=== PATIENT | female | born 1960 | race Caucasian/White ===

== ENCOUNTER 2017-10-24 18:42 | Emergency (ER) | payer BC ==
[~2017-10-24] VITALS: Ht 172.7 cm; Wt 68.8 kg
[2017-10-24 19:12] VITALS: TEMP 36.7; Ht 172.7 cm; Wt 68.8 kg
[2017-10-24] MEDS ORDERED: ONDANSETRON INJ 2 MG/ML 2 ML VIAL IV STA (19:51)
[2017-10-24] MEDS ORDERED: SODIUM CHLORIDE 0.9% 1000ML 1,000 ML IV STA (19:51)
[2017-10-24 20:22] LABS: BASO % 0.3 %; BASO ABS # 0.03 K/uL (0-0.2); EOS ABS # 0.35 K/uL (0-0.5); HEMATOCRIT 38.4 % (37-47); HEMOGLOBIN 13.1 g/dL (12.0-16.0); IG# 0.02 K/uL (0.00-0.02); LYMPH % 41.4 %; LYMPH ABS # 3.66 K/uL (1.2-3.4); MEAN CELL VOLUME 95.3 fL (80-100); MEAN CORPUSCULAR HEMOGLOBIN 32.5 pg (25-34); MEAN CORPUSCULAR HGB CONC 34.1 g/dl (32-36); MEAN PLATELET VOLUME 9.3 fL (7.4-10.4); MONO % 7.8 %; MONO ABS # 0.69 K/uL (0.11-0.59); NEUT % 46.3 %; PLATELET COUNT 217 K/uL (130-400); RED CELL DISTRIBUTION WIDTH SD 45.5 fL (36.4-46.3); WHITE BLOOD COUNT 8.85 K/uL (4.8-10.8)
--- NOTE | 2017-10-24 20:22 | DIAGNOSTIC IMAGING REPORT ---
CHEST ONE VIEW PORTABLE CLINICAL HISTORY: ABDOMINAL PAIN/GI pain COMPARISON STUDY: No previous studies for comparison. FINDINGS: The bones soft tissues and hemidiaphragms are normal. The cardiomediastinal silhouette is normal. The lungs are clear. The pulmonary vasculature is normal. Slight blunting left lateral costophrenic angle IMPRESSION: Negative chest. Slight blunting left lateral costophrenic angle of uncertain age The above report was generated using voice recognition software. It may contain grammatical, syntax or spelling errors. Electronically signed by: Aramis Westbrook M.D. 10/24/2017 8:21 PM Dictated Date/Time: 10/24/2017 8:20 PM
[2017-10-24] MEDS ORDERED: TRAZ50TA35 PO (20:23)
[2017-10-24] MEDS ORDERED: ASPI81TA28 PO (20:23)
[2017-10-24] MEDS ORDERED: VNTHFA/IN INH (20:23)
[2017-10-24] MEDS ORDERED: MULT-602 PO (20:23)
[2017-10-24] MEDS ORDERED: RANI150T85 PO (20:23)
[2017-10-24] MEDS ORDERED: NTRGSL/4 UT (20:23)
[2017-10-24] MEDS ORDERED: ATOR-24 PO (20:23)
[2017-10-24] MEDS ORDERED: CITA20TA4 PO (20:23)
[2017-10-24] MEDS ORDERED: SPRIN/30 INH (20:23)
[2017-10-24 20:38] LABS: ALBUMIN 3.9 gm/dl (3.4-5.0); ALT/SGPT 21 U/L (12-78); BLOOD UREA NITROGEN 15 mg/dl (7-18); CARBON DIOXIDE 29 mmol/L (21-32); CREATININE 0.88 mg/dl (0.60-1.20); GLUCOSE 85 mg/dl (70-99); LIPASE 184 U/L (73-393); POTASSIUM 3.8 mmol/L (3.5-5.1); SODIUM 138 mmol/L (136-145)
--- NOTE | 2017-10-24 20:39 | DIAGNOSTIC IMAGING REPORT ---
ABD/PELVIS NO IV OR ORAL CONT CT DOSE: 280.50 mGy.cm HISTORY: Flank pain diarrhea, vomiting, llq pain TECHNIQUE: Multiaxial CT images of the abdomen and pelvis were performed without contrast. A dose lowering technique was utilized adhering to the principles of ALARA. COMPARISON STUDY: None. FINDINGS: The lung bases are clear. Liver spleen and kidneys are unremarkable. No evidence for hydronephrosis. 3 cm lower pole left renal cyst. No renal calcifications or obstructive change. Unremarkable bowel pattern within the limitations of a complete lack of contrast. Normal appendix. Mild chronic sigmoid diverticulosis. No evidence for acute diverticulitis. IMPRESSION: 1. Mild chronic sigmoid diverticulosis.. 2. 3 cm lower pole left renal cyst. 3. Otherwise negative study. The above report was generated using voice recognition software. It may contain grammatical, syntax or spelling errors. Electronically signed by: Aramis Westbrook M.D. 10/24/2017 8:37 PM Dictated Date/Time: 10/24/2017 8:35 PM
[2017-10-24 20:41] LABS: ALKALINE PHOSPHATASE 46 U/L (45-117); AST/SGOT 17 U/L (15-37); TOTAL PROTEIN 7.2 gm/dl (6.4-8.2)
[2017-10-24] MEDS ORDERED: CEFTRIAXONE SOD INJ 1 GM ADDVIAL IV STA (21:53)
[2017-10-24] MEDS ORDERED: ONDA4TAB10 SL (23:15)
[2017-10-24] MEDS ORDERED: SULF800T23 PO (23:15)
--- NOTE | 2017-10-24 23:15 | EMERGENCY ROOM VISIT NOTE ---
History Report prepared by Jyotsna: Lucia Oliveira Under the Supervision of: Dr. Nadir Winkler D.O. First contact with patient: 19:43 Chief Complaint: ABDOMINAL PAIN Stated Complaint: VOMITTING,DIARRHEA,O2LVL DOWN,CONGESTION,DR DWIGHT Nursing Triage Summary: Seen at [facility] for vomiting nad diarrhea for 3 weeks. Not daily but off and on. Patient stated that there are tender spots in lower left quadrant and [facility] felt it could be divertuculitis. Patient notes lung and head congestion as well. History of Present Illness The patient is a 56 year old female who presents to the Emergency Room with complaints of persistent vomiting starting 1999 yesterday. The patient is nauseous and has been unable to keep anything down. She has vomited around 6 times. She also reports diarrhea and abdominal pain. She has diarrhea every time she goes to urinate. She has had these symptoms intermittently for the past 3 week. She was seen at the clinic today and referred to the ED because her oxygen level was low. She reports congestion and headache. She has a history of diverticulitis. She does smoke. Her oxygen is often low. She had a test and qualified for home oxygen, but she is currently not on oxygen. She denies any sick contacts. Source of History: patient Onset: 1999 yesterday Position: other (global) Quality: other (vomiting) Timing: other (persistent) Associated Symptoms: + headache, + nausea, + abdominal pain, + diarrhea Note: Pt reports congestion. Review of Systems See HPI for pertinent positives & negatives. A total of 10 systems reviewed and were otherwise negative. Past Medical & Surgical Medical Problems: (1) Diverticulitis Family History No pertinent family history stated. Social History Smoking Status: Never Smoker Marital Status: Current/Historical Medications Scheduled Albuterol Hfa (Ventolin Hfa), 2-4 PUFFS INH Q6H Aspirin (Aspirin Ec), 81 MG PO DAILY Atorvastatin (Lipitor), 40 MG PO DAILY Citalopram Hydrobromide (Citalopram Hydrobromide), 1 TAB PO DAILY Multiple Vitamins W/ Minerals (Womens 50+ Multi Vitamin), 1 TAB PO DAILY Nitroglycerin (Nitrostat), 0.4 MG UT PRN Ranitidine (Zantac), 150 MG PO DAILY Tiotropium [place] (Spiriva Handihaler), 1 CAP INH DAILY Trazodone Hcl (Trazodone), 50 MG PO HS Allergies Coded Allergies: Cephalexin (Unverified Allergy, Severe, HIVES, 10/24/17) Penicillins (Unverified Allergy, Severe, HIVES, 10/24/17) Physical Exam Vital Signs Date Time Temp Pulse Resp B/P (MAP) Pulse Ox O2 Delivery O2 Flow Rate FiO2 10/24/17 22:19 68 16 130/74 98 Room Air 10/24/17 21:07 65 16 136/73 96 Room Air 10/24/17 19:12 36.7 69 18 138/86 95 Room Air Physical Exam CONSTITUTIONAL/VITAL SIGNS: Reviewed / noted above. GENERAL: Non-toxic in appearance. INTEGUMENTARY: Warm, dry, and [place]. HEAD: Normocephalic. EYES: without scleral icterus or trauma. ENT/OROPHARYNX: clear and moist. LYMPHADENOPATHY/NECK: Is supple without lymphadenopathy or meningismus. RESPIRATORY: Lungs clear and equal. CARDIOVASCULAR: Regular rate and rhythm. GI/ABDOMEN: Soft. Mild LLQ tenderness. No organomegaly or pulsatile mass. No rebound or guarding. Normal bowel sounds. EXTREMITIES: Warm and well perfused. BACK: No CVA tenderness. NEUROLOGICAL: Intact without focal deficits. PSYCHIATRIC: normal affect. MUSCULOSKELETAL: Normally developed with good muscle tone. Medical Decision & Procedures ER Provider Diagnostic Interpretation: X ray results and stated below per my interpretation and radiology interpretation. Radiology results as stated below per my review and radiologist interpretation: CHEST ONE VIEW PORTABLE CLINICAL HISTORY: ABDOMINAL PAIN/GI pain COMPARISON STUDY: No previous studies for comparison. FINDINGS: The bones soft tissues and hemidiaphragms are normal. The cardiomediastinal silhouette is normal. The lungs are clear. The pulmonary vasculature is normal. Slight blunting left lateral costophrenic angle IMPRESSION: Negative chest. Slight blunting left lateral costophrenic angle of uncertain age The above report was generated using voice recognition software. It may contain grammatical, syntax or spelling errors. Electronically signed by: Aramis Westbrook M.D. 10/24/2017 8:21 PM Dictated Date/Time: 10/24/2017 8:20 PM ABD/PELVIS NO IV OR ORAL CONT CT DOSE: 280.50 mGy.cm HISTORY: Flank pain diarrhea, vomiting, llq pain TECHNIQUE: Multiaxial CT images of the abdomen and pelvis were performed without contrast. A dose lowering technique was utilized adhering to the principles of ALARA. COMPARISON STUDY: None. FINDINGS: The lung bases are clear. Liver spleen and kidneys are unremarkable. No evidence for hydronephrosis. 3 cm lower pole left renal cyst. No renal calcifications or obstructive change. Unremarkable bowel pattern within the limitations of a complete lack of contrast. Normal appendix. Mild chronic sigmoid diverticulosis. No evidence for acute diverticulitis. IMPRESSION: 1. Mild chronic sigmoid diverticulosis.. 2. 3 cm lower pole left renal cyst. 3. Otherwise negative study. The above report was generated using voice recognition software. It may contain grammatical, syntax or spelling errors. Electronically signed by: Aramis Westbrook M.D. 10/24/2017 8:37 PM Dictated Date/Time: 10/24/2017 8:35 PM Laboratory Results 10/24/17 20:10 Red Blood Count 4.03, Mean Corpuscular Volume 95.3, Mean Corpuscular Hemoglobin 32.5, Mean Corpuscular Hemoglobin Concent 34.1, Mean Platelet Volume 9.3, Neutrophils (%) (Auto) 46.3, Lymphocytes (%) (Auto) 41.4, Monocytes (%) (Auto) 7.8, Eosinophils (%) (Auto) 4.0, Basophils (%) (Auto) 0.3, Neutrophils # (Auto) 4.10, Lymphocytes # (Auto) 3.66, Monocytes # (Auto) 0.69, Eosinophils # (Auto) 0.35, Basophils # (Auto) 0.03 10/24/17 20:10 Test 10/24/17 20:10 White Blood Count 8.85 K/uL (4.8-10.8) Red Blood Count 4.03 M/uL (4.2-5.4) Hemoglobin 13.1 g/dL (12.0-16.0) Hematocrit 38.4 % (37-47) Mean Corpuscular Volume 95.3 fL (80-100) Mean Corpuscular Hemoglobin 32.5 pg (25-34) Mean Corpuscular Hemoglobin Concent 34.1 g/dl (32-36) Platelet Count 217 K/uL (130-400) Mean Platelet Volume 9.3 fL (7.4-10.4) Neutrophils (%) (Auto) 46.3 % Lymphocytes (%) (Auto) 41.4 % Monocytes (%) (Auto) 7.8 % Eosinophils (%) (Auto) 4.0 % Basophils (%) (Auto) 0.3 % Neutrophils # (Auto) 4.10 K/uL (1.4-6.5) Lymphocytes # (Auto) 3.66 K/uL (1.2-3.4) Monocytes # (Auto) 0.69 K/uL (0.11-0.59) Eosinophils # (Auto) 0.35 K/uL (0-0.5) Basophils # (Auto) 0.03 K/uL (0-0.2) RDW Standard Deviation 45.5 fL (36.4-46.3) RDW Coefficient of Variation 13.0 % (11.5-14.5) Immature Granulocyte % (Auto) 0.2 % Immature Granulocyte # (Auto) 0.02 K/uL (0.00-0.02) Urine Color YELLOW Urine Appearance CLEAR (CLEAR) Urine pH 5.5 (4.5-7.5) Urine Specific [place] 1.015 (1.000-1.030) Urine Protein NEG (NEG) Urine Glucose (UA) NEG (NEG) Urine Ketones NEG (NEG) Urine Occult Blood NEG (NEG) Urine Nitrite POS (NEG) Urine Bilirubin NEG (NEG) Urine Urobilinogen NEG (NEG) Urine Leukocyte Esterase MODERATE (NEG) Urine WBC (Auto) >30 /hpf (0-5) Urine RBC (Auto) 0-4 /hpf (0-4) Urine Hyaline Casts (Auto) 1-5 /lpf (0-5) Urine Epithelial Cells (Auto) >30 /lpf (0-5) Urine Bacteria (Auto) 4+ (NEG) Anion Gap 6.0 mmol/L (3-11) Est Creatinine Clear Calc Drug Dose 70.3 ml/min Estimated GFR () 83.9 Estimated GFR (Non- 72.4 BUN/Creatinine Ratio 17.4 (10-20) Calcium Level 9.0 mg/dl (8.5-10.1) Total Bilirubin 0.3 mg/dl (0.2-1) Direct Bilirubin < 0.1 mg/dl (0-0.2) Aspartate Amino Transf (AST/SGOT) 17 U/L (15-37) Alanine Aminotransferase (ALT/SGPT) 21 U/L (12-78) Alkaline Phosphatase 46 U/L (45-117) Total Protein 7.2 gm/dl (6.4-8.2) Albumin 3.9 gm/dl (3.4-5.0) Lipase 184 U/L (73-393) Laboratory results as stated above per my review. Medications Administered Medications (Trade) Dose Ordered Sig/Rosalind Route Start Time Stop Time Status Last Admin Dose Admin Sodium Chloride 1,000 ml @ 999 mls/hr Q1H1M STAT IV 10/24/17 19:51 10/24/17 20:51 DC 10/24/17 19:51 999 MLS/HR Ondansetron HCl (Zofran Inj) 4 mg NOW STAT IV 10/24/17 19:51 10/24/17 19:52 DC 10/24/17 20:16 4 MG Ceftriaxone Sodium (Rocephin Inj) 1 gm NOW STAT IV 10/24/17 21:53 10/24/17 21:54 DC 10/24/17 22:13 1 GM ED Course 1944: Previous medical records were reviewed. The patient was evaluated in room B2. A complete history and physical examination was performed. 1950: Zofran Inj 4 mg IV, NSS 1000 ml @ 999 mls/hr IV. 2152: Rocephin Inj 1 gm IV. 2211: On reevaluation, the patient is resting comfortably. I discussed the results and findings with the patient. She verbalized agreement of the treatment plan. She was discharged home. Medical Decision Differential diagnosis: Etiologies such as gastroenteritis, food borne illness, infections, appendicitis , diverticulitis, inflammatory bowel disease, obstruction, GI bleed, biliary pathology, as well as others were entertained. This is a 48-year-old female who presents to the ED with a chief complaint of abdominal pain. The patient reports some left lower quadrant abdominal pain as well as some nausea, vomiting and diarrhea. She states that it started around 8 PM tonight. She has had several episodes of vomiting and diarrhea. Her vital signs normal. Her physical exam revealed some tenderness in the left lower quadrant that was mild. A CT scan of the abdomen pelvis did not show any acute process. There was noted to be a left 3 cm renal cyst that is unlikely to be related to the patient's symptoms. Chest x-ray was negative for acute disease. CBC is normal, complete metabolic panel was normal, lipase is negative , urine is suggestive of a UTI. The patient was treated with IV Rocephin. She was given IV fluids and IV Zofran. The patient was told the results. She was discharged on Bactrim. Medication Reconcilliation Current Medication List: was personally reviewed by me Blood Pressure Screening Patient's blood pressure: Elevated blood pressure Blood pressure disposition: Elevated BP felt to be situational Impression Primary Impression: UTI (urinary tract infection) Additional Impressions: Vomiting Diarrhea Scribe Attestation The scribe's documentation has been prepared under my direction and personally reviewed by me in its entirety. I confirm that the note above accurately reflects all work, treatment, procedures, and medical decision making performed by me. Departure Information Prescriptions Sulfa/Trimethoprim (Bactrim Ds 800MG/160MG) Tab 1 TAB PO BID, #14 TAB Prov: Nadir Winkler D.ODestini 10/24/17 Ondasetron Odt (ZOFRAN ODT) 4 Mg Tab 4 MG SL Q6H for Nausea, #15 TAB Prov: Nadir Winkler D.O. 10/24/17 Referrals No Doctor, Assigned (PCP) Patient Instructions [facility] Additional Instructions Bactrim as prescribed. Zofran: Allow one tablet to dissolve under the tongue every 6 hours as needed for nausea or vomiting. Follow-up with your doctor for further care and evaluation in 1-2 days. Return to the emergency department for worsening or new symptoms or any concerns. You have been examined and treated today on an emergency basis only. This is not a substitute for, or an effort to provide, complete comprehensive medical care. It is impossible to recognize and treat all injuries or illnesses in a single emergency department visit. It is therefore important that you follow up closely with your doctor. Call as soon as possible for an appointment. Problem Qualifiers
[2017-10-24 23:24] VITALS: BP 126/78; PULSE 85; O2SAT 98
--- NOTE | 2017-10-26 12:14 | Pharmacy Progress Note ---
ED Pharmacist Culture FollowUp Date of Service: Oct 26, 2017. Patient was sent home with a prescription for bactrim 1 tab BID X 7 days, which should cover the E. coli growing from the patient's urine culture.
== END 2017-10-24 23:24 | disposition home or self-care (01) ==
LOC: C.EDB 18:48
DX: N39.0 Urinary tract infection, site not specified (principal); R11.2 Nausea with vomiting, unspecified; R19.7 Diarrhea, unspecified; N28.1 Cyst of kidney, acquired; Z79.82 Long term (current) use of aspirin; Z79.899 Other long term (current) drug therapy; Z88.0 Allergy status to penicillin; Z88.1 Allergy status to other antibiotic agents